=== PATIENT | female | born 1960 | race Caucasian/White ===

== ENCOUNTER 2017-06-22 08:30 | Emergency (ER) | payer BC ==
[~2017-06-22] VITALS: Ht 167.6 cm; Wt 74.8 kg
[~2017-06-22 08:30] MED LIST: CIPRO500 MG PO; FLAGYL250 MG PO; LEVAQUIN500 MG PO; TRAMADOL-ACETAMI1 EA PO; [UNRECOGNIZED DRUG - OTHER]
[2017-06-22] MEDS ORDERED: DEXAMETHASONE SOD PHOS 10 MG/1 ML VIAL INJ ONE (10:15)
[2017-06-22] MEDS ORDERED: DIAZEPAM 5 MG TAB PO PRN (10:15)
[2017-06-22] MEDS ORDERED: HYDROCODONE/APAP 10MG-325MG TAB PO ONE (10:15)
[2017-06-22] MEDS ORDERED: KETOROLAC TROMETHAMINE 60 MG/2 ML VIAL IM ONE (10:15)
== END 2017-06-22 11:17 | disposition home or self-care (01) ==
LOC: ER 08:30
DX: M54.5 Low back pain (principal); S39.012A Strain of muscle, fascia and tendon of lower back, initial encounter; M54.16 Radiculopathy, lumbar region
CPT/HCPCS: 99283; J1100; J1885

== ENCOUNTER → 2018-02-17 | Outpatient (CLI) | payer BC | LOC: RAD 13:47 | PROVIDERS: ATTEND Family Medicine | DX: M79.605 Pain in left leg (principal); Z91.89 Other specified personal risk factors, not elsewhere classified | CPT/HCPCS: 93971 ==

== ENCOUNTER → 2018-02-18 | Outpatient (CLI) | payer BC ==
--- NOTE | 2018-02-18 08:55 | Diagnostic Imaging Report ---
PROCEDURE: CT scan of the chest WITH intravenous contrast, using PE protocol. TECHNIQUE: The chest was scanned utilizing a multidetector helical scanner from the lung apex through the level of the adrenal glands after the IV administration of 73 cc of Isovue 370. Coronal and sagittal multiplanar reformations were obtained. Dose reduction strategies were utilized. DLP: 549.05 mGy-cm COMPARISON: CT scan of the abdomen and pelvis dated 01/06/2016. INDICATIONS: SHORTNESS OF BREATH FINDINGS: Lines/tubes: None. Lungs and Airways: The lungs and airways are normal with no focal abnormality demonstrated. No evidence of pulmonary emboli. Pleura: The pleural spaces are clear. Heart and mediastinum: The thyroid gland is normal. No significant mediastinal, hilar or axillary lymphadenopathy is seen. The heart and pericardium are within normal limits. Soft tissues: Normal. Abdomen: Moderate sized hiatal hernia. Large fat containing left adrenal mass with some internal soft tissue consistent with a myelolipoma which was previously described on a prior abdominal CT dated 01/06/2016 measuring 7.6 cm. It now measures 7.97 cm. Hepatic steatosis. Bones: The visualized bony thorax is within normal limits. IMPRESSION: 1. No evidence of pulmonary emboli. 2. Moderate sized hiatal hernia. 3. Left adrenal fat-containing mass consistent with a myelolipoma. Gerber Rivera D.O. Dictated by: Gerber Rivera D.O. on 02/18/2018 at 8:54 Electronically approved by: Gerber Rivera D.O. on 02/18/2018 at 9:02
== END ==
LOC: CT 07:40
PROVIDERS: ATTEND Family Medicine
DX: R07.9 Chest pain, unspecified (principal); R06.02 Shortness of breath; M79.605 Pain in left leg; Z91.89 Other specified personal risk factors, not elsewhere classified
CPT/HCPCS: 71260

== ENCOUNTER → 2018-02-23 | Outpatient (CLI) | payer BC ==
--- NOTE | 2018-02-23 11:36 | Diagnostic Imaging Report ---
TECHNIQUE: Magnetic resonance imaging of the LEFT KNEE was performed WITHOUT injected contrast. HISTORY: Left knee pain COMPARISON: None available. FINDINGS: LIGAMENTS AND TENDONS: ACL: Intact PCL: Intact Collateral ligaments: Intact Iliotibial band: Unremarkable Popliteal tendon: Intact Extensor mechanism: Intact JOINT: Menisci: Medial: Horizontal tear of the posterior horn with partial tearing at the root attachment results and extrusion. Lateral: Intact Articular Cartilage: Medial Compartment: Partial-thickness cartilage loss, high-grade Lateral Compartment: Partial-thickness cartilage loss, low-grade Patellofemoral Compartment: Partial-thickness cartilage loss, intermediate grade Joint Fluid: Moderate joint effusion BONE: No focal or infiltrative bone marrow replacing abnormality. No acute fracture. SOFT TISSUES: Otherwise, unremarkable. IMPRESSION: Medial meniscus horizontal tear posterior horn with partial tearing at the root attachment results in meniscal extrusion. Medial compartment high-grade cartilage loss. Signed by: Dr. Morales Taylor M.D. on 02/23/2018 11:33 AM
== END ==
LOC: MRI 10:14
PROVIDERS: ATTEND Family Medicine
DX: M25.562 Pain in left knee (principal)

== ENCOUNTER → 2018-08-23 | Day surgery (SDC) | payer BC ==
[~2018-08-23] MED LIST changes: +FENTANYL CITRATE/PF 100MCG/2 ML INJ ONE; +HYOSCYAMINE SULFATE 0.5 MG/ML INJ ONE; +MELOXICAM7.5 MG PO; +MIDAZOLAM HCL 2 MG/2 ML VIAL ONE; +PROPOFOL IV EMULSION 10 MG/ML 50 ML VIAL ONE; +ZYRTEC10 M3 PO
--- OUTSIDE RECORDS SUMMARY | 2018-08-23 09:25 | XMS REPORT ---
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 Allergies, Adverse Reactions, Alerts This patient has no known allergies or adverse reactions. Medications This patient has no known medications. Results Test Description Test Time Test Comments Text Results Atomic Results Result Comments MRI KNEE LEFT WO 2018-02-23 11:24:00 [place] [id number] [place] [id number] Patient Name: DAE PEREZ MR #: [id number] : 1960 Age/Sex: 57/F Req #: [id number] [facility] Physician: Ordered by: JESSICA AKERS DO Report #: [id number] Location: MRI Room/Bed: Procedure: [id number] MRI/MRI KNEE LEFT WO Exam Date: Exam Time: REPORT STATUS: Signed TECHNIQUE: Magnetic resonance imaging of the LEFT KNEE was performed WITHOUT injected contrast. HISTORY: Left knee pain COMPARISON: None available. FINDINGS: LIGAMENTS AND TENDONS: ACL: Intact PCL: Intact Collateral ligaments: Intact Iliotibial band: Unremarkable Popliteal tendon: Intact Extensor mechanism: Intact JOINT: Menisci: Medial: Horizontal tear of the posterior horn with partial tearing at the root attachment results and extrusion. Lateral: Intact Articular Cartilage: Medial Compartment: Partial-thickness cartilage loss, high-grade Lateral Compartment: Partial-thickness cartilage loss, low-grade Patellofemoral Compartment: Partial-thickness cartilage loss, intermediate grade Joint Fluid: Moderate joint effusion BONE: No focal or infiltrative bone marrow replacing abnormality. No acute fracture. SOFT TISSUES: Otherwise, unremarkable. IMPRESSION: Medial meniscus horizontal tear posterior horn with partial tearing at the root attachment results in meniscal extrusion. Medial compartment high-grade cartilage loss. Signed by: Dr. Avni Webb M.D. on 02/23/2018 11:33 AM Dictated By: AVNI WEBB MD 113 Transcribed By: KAREN on 02/23/18 1133 COPY TO: JESSICA AKERS DO CT CHEST W 2018-02-18 08:54:00 [place] [id number] Patient Name: DAE PEREZ MR #: [id number] : 1960 Age/Sex: 57/F Req #: [id number] Adm Physician: Ordered by: JESSICA AKERS DO Report #: [id number] Location: CT Room/Bed: Procedure: [id number] CT/CT CHEST W Exam Date: 02/18/18 Exam Time: 814 REPORT STATUS: Signed PROCEDURE: CT scan of the chest WITH intravenous contrast, using PE protocol. TECHNIQUE: The chest was scanned utilizing a multidetector helical scanner from the lung apex through the level of the adrenal glands after the IV administration of 73 cc of Isovue 370. Coronal and sagittal multiplanar reformations were obtained. Dose reduction strategies were utilized. DLP: 549.05 mGy-cm COMPARISON: CT scan of the abdomen and pelvis dated 01/06/2016. INDICATIONS: SHORTNESS OF BREATH FINDINGS: Lines/tubes: None. Lungs and Airways: The lungs and airways are normal with no focal abnormality demonstrated. No evidence of pulmonary emboli. Pleura: The pleural spaces are clear. Heart and mediastinum: The thyroid gland is normal. No significant mediastinal, hilar or axillary l ymphadenopathy is seen. The heart and pericardium are within normal limits. Soft tissues: Normal. Abdomen: Moderate sized hiatal hernia. Large fat containing left adrenal mass with some internal soft tissue consistent with a myelolipoma which was previously described on a prior abdominal CT dated 01/06/2016 measuring 7.6 cm. It now measures 7.97 cm. Hepatic steatosis. Bones: The visualized bony thorax is within normal limits. IMPRESSION: 1. No evidence of pulmonary emboli. 2. Moderate sized hiatal hernia. 3. Left adrenal fat-containing mass consistent with a myelolipoma. Kim Rivera D.O. Dictated by: Kim Rivera D.O. on 02/18/2018 at 8:54 Electronically approved by: Kim Rivera D.O. on 02/18/2018 at 9:02 Dictated By: KIM RIVERA DO 1 Transcribed By: CHERELLE on 02/18/18901 COPY TO: JESSICA AKERS DO
[2018-08-23 13:12] VITALS: BP 120/85
--- NOTE | 2018-08-23 20:03 | Operative Report ---
DATE OF PROCEDURE: 08/23/2018 SURGEON: Damian Bernal MD PROCEDURES: EGD with esophageal dilatation and biopsies and colonoscopy with biopsies. INDICATION FOR EGD: Dysphagia, heartburn. INDICATIONS FOR COLONOSCOPY: Lower abdominal pain. MEDICATIONS: The patient was done under MAC, please see anesthesiologist's note. PROCEDURE IN DETAIL: With the patient in left lateral decubitus position, the flexible fiberoptic Olympus gastroscope was introduced into the esophagus under direct visualization without any difficulty. There was some patchy erythema noted in distal esophagus. Esophagus was then dilated to size 52-Sammarinese Chang. The scope was then advanced with ease into the stomach traversing a moderate-sized hiatal hernia. Mucosa overlying the antrum and the body revealed some patchy erythema, gefc-uo-stbucycj edema and biopsies were obtained and sent to stain for H pylori. A minute polyp from the body of the stomach was hyperplastic appearing was removed. It was partially excised with the cold biopsy forceps. The pylorus was of normal contour and shape, was intubated with ease and the scope was advanced all the way to the second portion of the duodenum. The scope was then withdrawn slowly. Mucosa overlying the proximal second portion and the duodenal bulb appeared to be within normal limits. Biopsies were obtained to rule out sprue. The scope was then withdrawn back into the stomach and retroflexed. Mucosa overlying the fundus appeared to be within normal limits. The previously described hiatal hernia was also noted in the retroflexed position. The scope was then straightened out, it was subsequently withdrawn. The patient tolerated the procedure well. IMPRESSION: 1. Mild distal esophagitis. 2. Esophageal stricture, dilated to size 52-Sammarinese Chang. 3. Moderate-sized hiatal hernia. 4. Gastritis, biopsied. Biopsies sent to stain for Helicobacter pylori. 5. Gastric polyp, hyperplastic appearing, partially excised with the cold biopsy forceps. 6. Rule out sprue. PLAN: Follow up histology. Initiate Protonix 40 mg 1 p.o. q.a.m. a.c. The patient was then turned around after adequate lubrication of the anal canal, flexible fiberoptic Olympus colonoscope was inserted into the rectum with ease and advanced all the way to the cecum. It was then withdrawn slowly. Mucosa overlying the cecum, ascending colon, transverse colon, and descending colon grossly appeared to be within normal limits. Of note, there was diverticular disease throughout the colon. The mucosa overlying the sigmoid and the rectum revealed some patchy mild inflammatory changes and random biopsies were obtained. Anastomosis was noted at approximately 10 cm from the anal verge. The scope was then retroflexed into the distal rectum and small internal hemorrhoids were noted, none of which was actively bleeding. The scope was then straightened out. It was subsequently withdrawn. The patient tolerated the procedure well. IMPRESSION: 1. Duong-diverticulosis. 2. Proctosigmoiditis, mild. 3. Anastomosis intact at 10 cm from the anal verge. 4. Internal hemorrhoids, none actively bleeding. PLAN: Follow up histology. Initiate VSL #3, one p.o. daily. Bentyl 10 mg one p.o. t.i.d. The patient might benefit from a followup colonoscopy in 5-10 years. Damian Bernal MD [place]/VIOLET /[id number] cc: Alfonso Coronel DO
== END | disposition home or self-care (01) ==
LOC: OR 09:24
PROVIDERS: ATTEND Internal Medicine Gastroenterology
DX: K22.2 Esophageal obstruction (principal); K31.7 Polyp of stomach and duodenum; K29.70 Gastritis, unspecified, without bleeding; K20.9 Esophagitis, unspecified; K44.9 Diaphragmatic hernia without obstruction or gangrene; K57.30 Diverticulosis of large intestine without perforation or abscess without bleeding; K63.89 Other specified diseases of intestine; K64.8 Other hemorrhoids; Z98.0 Intestinal bypass and anastomosis status; Z88.8 Allergy status to other drugs, medicaments and biological substances; Z91.041 Radiographic dye allergy status; Z91.040 Latex allergy status; Z01.810 Encounter for preprocedural cardiovascular examination; Z68.32 Body mass index [BMI] 32.0-32.9, adult; Z80.0 Family history of malignant neoplasm of digestive organs
CPT/HCPCS: 43239; 43450; 45380; 93005; J1980; J2250; J2704; 45378

== ENCOUNTER 2019-05-09 13:42 | Inpatient (IN) | payer BC ==
[~2019-05-09] VITALS: Ht 165.1 cm; Wt 95.3 kg
[~2019-05-09 13:42] MED LIST changes: -FENTANYL CITRATE/PF 100MCG/2 ML INJ ONE; -HYOSCYAMINE SULFATE 0.5 MG/ML INJ ONE; -MIDAZOLAM HCL 2 MG/2 ML VIAL ONE; -PROPOFOL IV EMULSION 10 MG/ML 50 ML VIAL ONE
[2019-05-09] MEDS ORDERED: SODIUM CHLORIDE 0.9% 500ML 500 ML IV ONE (14:00)
[2019-05-09 14:15] LABS: BASOPHILS # (AUTO) 0.1 (0.0-0.1); BASOPHILS % 0.8 % (0.0-1.0); EOSINOPHILS # (AUTO) 0.2 (0.0-0.4); EOSINOPHILS % 1.7 % (0.0-6.0); HEMATOCRIT 28.2 % (34.2-44.1); HEMOGLOBIN 8.9 g/dL (12.0-16.0); LYMPHOCYTES # (AUTO) 2.3 (1.0-3.2); MEAN CORPUSCULAR HEMOGLOBIN 28.3 pg (28-32); MEAN CORPUSCULAR HGB CONC 31.6 g/dL (31-35); MEAN CORPUSCULAR VOLUME 89.5 fL (81-99); MONOCYTES # (AUTO) 0.7 (0.2-0.8); MONOCYTES % 7.4 % (4.4-11.3); NEUTROPHILS # (AUTO) 5.8 (2.1-6.9); NEUTROPHILS % 62.3 % (38.7-80.0); PLATELET COUNT 284 x10e3/uL (140-360); RED BLOOD COUNT 3.15 x10e6/uL (3.6-5.1); RED CELL DISTRIBUTION WIDTH 13.7 % (11.7-14.4)
[2019-05-09 14:28] LABS: INR 0.91; PARTIAL THROMBOPLASTIN TIME 26.3 seconds (23.8-35.5); PROTHROMBIN TIME 12.7 seconds (11.9-14.5)
[2019-05-09 14:38] LABS: ALANINE AMINOTRANSFERASE 85 IU/L (0-55); ALBUMIN 3.2 g/dL (3.5-5.0); ALKALINE PHOSPHATASE 96 IU/L (40-150); ANION GAP 13.9 mmol/L (8-16); BLOOD UREA NITROGEN 13 mg/dL (7-26); BUN/CREATININE RATIO 18 (6-25); CALCIUM 9.3 mg/dL (8.4-10.2); CARBON DIOXIDE 26 mmol/L (22-29); CHLORIDE 102 mmol/L (98-107); CREATINE KINASE 122 IU/L (29-168); CREATININE, SERUM 0.74 mg/dL (0.57-1.11); EST GLOMERULAR FILTRATION RATE > 60 ML/MIN (60-); GLUCOSE 92 mg/dL (74-118); POTASSIUM 3.9 mmol/L (3.5-5.1); SODIUM 138 mmol/L (136-145)
[2019-05-09] MEDS ORDERED: FAMOTIDINE 20 MG/2 ML VIAL IV ONE (14:58)
[2019-05-09] MEDS ORDERED: DIPHENHYDRAMINE HCL INJ 50 MG/ML VIAL IV ONE (15:00)
[2019-05-09] MEDS ORDERED: METHYLPREDNISOLONE SOD SUCC 125 MG/2ML VIAL IV ONE (15:00)
--- NOTE | 2019-05-09 15:31 | Diagnostic Imaging Report ---
Chest, portable AP view History: Shortness of breath Comparison: No comparisons available for review IMPRESSION: The heart is within normal limits of size. Bibasilar atelectasis is present. No focal consolidation, sizable pleural effusion, or pneumothorax. Signed by: Michel Stafford MD on 05/09/2019 3:28 PM
[2019-05-09] MEDS ORDERED: ASPIR 8181 MG PO (15:49)
[2019-05-09] MEDS ORDERED: TIZANIDINE HCL4 MG PO (15:49)
[2019-05-09] MEDS ORDERED: ULTRAM50 MG PO (15:49)
[2019-05-09] MEDS ORDERED: KETOROLAC TROME10 MG PO (15:49)
[2019-05-09] MEDS ORDERED: FLECTOR1 EACH (15:49)
[2019-05-09] MEDS ORDERED: NORCO 10-325 T1 EACH PO (15:49)
--- NOTE | 2019-05-09 15:53 | NUR ---
AREA SECRETARY HERE FOR VENOUS DOPPLERS
--- NOTE | 2019-05-09 16:53 | Diagnostic Imaging Report ---
CT of the chest, with contrast. PE protocol History: Shortness of breath Comparison: No chest CT comparisons available for review. Comparison is made to chest radiograph dated 05/09/2019. Report from CT of the abdomen and pelvis dated 01/06/2016 Technique: Multidetector CT scanning of the chest was performed from the level of the thoracic inlet to the upper abdomen after IV contrast administration. Thin collimation scanning through the pulmonary arteries was performed during the early phase. DOSE REDUCTION: The examination was performed according to departmental dose-optimization program which includes automated exposure control, adjustment of the mA and/or kV according to patient size and/or use of iterative reconstruction technique. Discussion: There is no axillary, mediastinal, or hilar lymphadenopathy. The heart is within normal limits of size. There is no pericardial effusion the thoracic aorta is of normal course and caliber. The main pulmonary artery is normal in caliber. The pulmonary artery branches are well-opacified with contrast. There is no evidence of filling defect to suggest acute pulmonary embolism. The trachea and central airways are clear. A moderate right pleural effusion and small left pleural effusion are present. The lungs demonstrate diffuse nonspecific groundglass opacities, right greater than left which may be secondary to edema or atypical infection. Multiple pulmonary nodules are identified: 6 mm, right upper lobe, series 3 image 35 4 mm, right upper lobe, series 3 image 36 4 mm, right upper lobe, series 3 image 39 There is no pneumothorax. A moderate hiatal hernia is present. No acute osseous abnormalities. Limited evaluation of the upper abdomen demonstrates a partially imaged fat-containing left adrenal mass which is previously been characterized as a myolipoma. The right adrenal gland is unremarkable. No focal hepatic lesions identified in the visualized portions of the liver. No acute osseous abnormalities. IMPRESSION: 1. No evidence of pulmonary embolism. 2. Moderate right and small left pleural effusion. 3. Nonspecific ground glass opacities throughout both lungs, right greater than left. Findings may be seen in edema or atypical infection. 4. Pulmonary nodules measuring up to [address] at 3-6 months, then at 18-24 months. 5. Partially imaged fat-containing left adrenal mass. Previously characterized as an adrenal myolipoma. Signed by: Michel Stafford MD on 05/09/2019 4:49 PM
[2019-05-09] MEDS ORDERED: PROPOFOL IV EMULSION 10MG/ML 100 ML ONE (17:15)
[2019-05-09] MEDS ORDERED: FAMOTIDINE 20 MG/2 ML VIAL IV SCH (18:15)
[2019-05-09] MEDS ORDERED: MORPHINE SULFATE 2 MG/ML SYR 1ML IV PRN (18:15)
[2019-05-09] MEDS: CEFTRIAXONE SOD 1 GM/NS 50 ML 50 ML IV SCH (18:40)
[2019-05-09] MEDS: AZITHROMYCIN 500MG/NS 250 ML 250 ML IV SCH (19:21)
[2019-05-09] MEDS ORDERED: HYDROCODON-ACE1 EAC9 PO (19:38)
[2019-05-09] MEDS ORDERED: FLUTICASONE PRO16 GM (19:38)
[2019-05-09] MEDS ORDERED: LO-DOSE ASPIRIN81 MG PO (19:38)
[2019-05-09] MEDS ORDERED: DICLOFENAC SODI75 MG PO (19:38)
[2019-05-09] MEDS ORDERED: ACETAMINOPHN-B1 EACH PO (19:40)
[2019-05-09] MEDS ORDERED: IOPAMIDOL 370 MG/ML 200 ML INFUS..BTL INJ ONE (19:55)
[2019-05-09] MEDS ORDERED: SODIUM CHLORIDE 0.9% 50ML 50 ML ONE (19:55)
[2019-05-09] MEDS: MORPHINE SULFATE INJ 4 MG/ML INJ 1ML IV PRN (22:30)
[2019-05-09] MEDS: ONDANSETRON HCL INJ 2MG/ML 2ML 2 MG/ML VIAL IV PRN (22:30)
[2019-05-10 01:56] LABS: CREATINE KINASE 108 IU/L (29-168)
[2019-05-10] MEDS: ONDANSETRON HCL INJ 2MG/ML 2ML 2 MG/ML VIAL IV PRN ×3 (03:11→16:20)
[2019-05-10] MEDS: MORPHINE SULFATE INJ 4 MG/ML INJ 1ML IV PRN (03:11)
[2019-05-10 05:50] LABS: BASOPHILS % 0.2 % (0.0-1.0); HEMATOCRIT 29.2 % (34.2-44.1); HEMOGLOBIN 9.1 g/dL (12.0-16.0); LYMPHOCYTES % 10.3 % (18.0-39.1); MEAN CORPUSCULAR HEMOGLOBIN 28.7 pg (28-32); MEAN CORPUSCULAR HGB CONC 31.2 g/dL (31-35); MEAN CORPUSCULAR VOLUME 92.1 fL (81-99); MONOCYTES # (AUTO) 0.3 (0.2-0.8); MONOCYTES % 3.4 % (4.4-11.3); NEUTROPHILS # (AUTO) 7.9 (2.1-6.9); NEUTROPHILS % 82.3 % (38.7-80.0); PLATELET COUNT 283 x10e3/uL (140-360); RED BLOOD COUNT 3.17 x10e6/uL (3.6-5.1); RED CELL DISTRIBUTION WIDTH 13.5 % (11.7-14.4)
[2019-05-10 06:12] LABS: ALANINE AMINOTRANSFERASE 65 IU/L (0-55); ALKALINE PHOSPHATASE 87 IU/L (40-150); ANION GAP 15.2 mmol/L (8-16); BLOOD UREA NITROGEN 11 mg/dL (7-26); BUN/CREATININE RATIO 15 (6-25); CALCIUM 9.2 mg/dL (8.4-10.2); CARBON DIOXIDE 26 mmol/L (22-29); CHLORIDE 109 mmol/L (98-107); CHOL/HDL RATIO 2.6 (3.0-3.6); CHOLESTEROL 95 MD/DL (0-199); CREATINE KINASE 98 IU/L (29-168); CREATININE, SERUM 0.73 mg/dL (0.57-1.11); EST GLOMERULAR FILTRATION RATE > 60 ML/MIN (60-); GLUCOSE 146 mg/dL (74-118); HDL CHOLESTEROL 37 MG/DL (40-60); LDL CHOLESTEROL 45 MG/DL (60-130); POTASSIUM 5.2 mmol/L (3.5-5.1); SODIUM 145 mmol/L (136-145); TRIGLYCERIDES 63 MG/DL (0-149)
--- NOTE | 2019-05-10 10:50 | NUR ---
Report received from FANTASMA Nguyen. Pt sitting up comfortably. RR even and unlabored. Pt remains on NIBP, pulse ox, cardiac monitoring and oxygen via NC @ 2L. Call light in reach. Bed locked in lowest position. Bed rails up x2. Spouse at bedside. Will continue to monitor.
[2019-05-10] MEDS: FAMOTIDINE 20 MG/2 ML VIAL IV SCH ×2 (11:45→22:00)
[2019-05-10] MEDS: HYDROMORPHONE 2MG/ML 2 MG/ML ML IV PRN ×3 (11:52→22:00)
[2019-05-10] MEDS: ACETAMIN/BUTALBITAL/CAFFEINE TAB PO PRN (12:22)
--- NOTE | 2019-05-10 12:49 | NUR ---
WOUND CARE CONSULT 58 YO FEMALE IN ER HOLDING FOR ONSET OF DYSPNEA,CHF MIRIAM 14 ON MODERATE PUP ON VISCO MATTRESS AT THIS TIME LABS: WBC- 9.35,HG- 9.1, GLUCOSE - 146 BLOOD CULTURE PENDING VENOUS DOPPLER DONE TO R/O VENOUS THROMBUS SKIN ASSESSMENT COMPLETE PATIENT PRESENTS WITH RECENT POST SURGICAL LEFT KNEE (TKR) 15 CM STAPLE LINE NOTED AND WELL APPROXIMATED WITH MINIMAL SEROSANGUINEOUS DRAINAGE NERI SKIN DRY AND INTACT . PER PATIENT REPORT SHE WAS TOLD BY ORTHOPEDIC SURGEON TO REMOVE SILVER ALGINATE DRESSING AND CLEAN WITH HIBICLENS AND LEAVE OPEN TO AIR RECOMMENDATIONS : NURSING TO CONTINUE TO MAINTAIN MODERATE PUP STATUS AND INTERVENTIONS NURSING TO CONTINUE TO MONITOR AND PROTECT LEFT KNEE STAPLE LINE IF ANY REDNESS, PAIN OR DECREASE MOBILITY OCCURS CONTACT MD AND RECONSULT WOUND CARE TO ASSESS FOR POSSIBILITY OF INFECTION
[2019-05-10] MEDS ORDERED: LORATADINE 10 MG TAB PO PRN (13:15)
[2019-05-10] MEDS ORDERED: ASPIRIN 81 MG ENTERIC COATED PO SCH (14:00)
[2019-05-10 14:22] VITALS: BP 139/67
--- NOTE | 2019-05-10 14:22 | NUR ---
Received patient from E.. Lying in bed with eyes open. Respiration even and unlabored without SOB. O2 1 L NC in placed. Left knee post surgical site with elo open to air, wound bed clean and surrounding skin no bleeding, swelling and no s/s of infection noted. Spouse at bedside. Call light in reach. Denies pain at this time.
[2019-05-10 16:00] VITALS: BP 139/67
[2019-05-10] MEDS: CEFTRIAXONE SOD 1 GM/NS 50 ML 50 ML IV SCH (16:07)
[2019-05-10] MEDS: FUROSEMIDE INJ 10 MG/ML 4 ML VIAL IV SCH (16:08)
[2019-05-10] MEDS ORDERED: SODIUM CHLORIDE 0.9% 250ML 250 ML ONE (16:18)
[2019-05-10] MEDS: AZITHROMYCIN 500MG/NS 250 ML 250 ML IV SCH (17:26)
--- NOTE | 2019-05-10 19:00 | NUR ---
Report given to night shift supervisor. Respiration even and unlabored without SOB. Call light in reach.
[2019-05-10 19:12] VITALS: BP 139/67
[2019-05-10 20:00] VITALS: BP 102/58
--- NOTE | 2019-05-10 22:50 | Consultation ---
DATE OF CONSULTATION: 05/10/2019 Cardiology Consultation REQUESTING PHYSICIAN: Dr. Bernal. REASON FOR CONSULTATION: Congestive heart failure. HISTORY OF PRESENT ILLNESS: This is a 58-year-old woman with history of migraine and GERD, who presents with complaints of shortness of breath. The patient reports she had been doing well and until Thursday when she had a left knee replacement, she subsequently developed shortness of breath on Thursday night, associated palpitations. This progressively worsened such that she was dyspneic with taking a shower. She called her orthopedic surgeon who instructed her to present to the closest ER for evaluation. She denied any chest pain, orthopnea, or PND. Denies any recent travel other than a trip to [place] [place] in March. Evaluation in the ER included CTA of the chest which was without evidence of pulmonary embolism, although moderate right and small left pleural effusions were noted. There were nonspecific ground-glass opacities throughout both lungs, right greater than left, as well as pulmonary nodules. Cardiology is therefore consulted for evaluation of CHF. REVIEW OF SYSTEMS: Negative except as per HPI. PAST MEDICAL HISTORY: 1. Migraines. 2. GERD. PAST SURGICAL HISTORY: 1. Partial colon resection. 2. section x2. 3. Left knee replacement. ALLERGIES: PLEASE SEE EMR. MEDICATIONS: Please see medication list. SOCIAL HISTORY: Denies tobacco, alcohol, or illicit drugs. FAMILY HISTORY: Noncontributory to current illness. PHYSICAL EXAMINATION: VITAL SIGNS: Temperature 98.7 degrees, pulse 90, respiratory rate 16, blood pressure 135/65, and oxygen saturation 100% on 2 L nasal cannula. GENERAL: Awake, alert, well developed, and well nourished. HEENT: Normocephalic and atraumatic. Pupils are equal. No scleral icterus. NECK: Supple. No thyromegaly or cervical lymphadenopathy. No carotid bruits. LUNGS: Clear to auscultation bilaterally. No wheezes or crackles. CARDIOVASCULAR: Normal rate, regular rhythm. No murmur. Normal S1 and S2. ABDOMEN: Soft and nontender. EXTREMITIES: Trace edema. NEUROLOGIC: Nonfocal exam. LABORATORY DATA: EKG normal sinus rhythm, normal ECG. WBC 9.53, hemoglobin 9.1, hematocrit 29.2, and platelets 283. Sodium 145, potassium 5.2, chloride 109, CO2 of 26, BUN 11, creatinine 0.73. BNP 289. Troponin is less than 0.001. Triglycerides 63, cholesterol 95, LDL 45, and HDL 37. IMPRESSION: 1. Cqavh-gg-rzmwucx diastolic heart failure. 2. Elevated blood pressure. 3. Pleural effusions. RECOMMENDATIONS: Start the patient on IV diuretics. Echocardiogram was reviewed. LV ejection fraction was normal, although she had pseudonormal LV fillings consistent with diastolic dysfunction. Monitor the patient closely on telemetry, with monitor and replete electrolytes. Monitor blood pressure closely. She may need initiation of antihypertensive therapy if blood pressure remains elevated. Recommend the patient to followup in the office once she has recovered from her surgery for nuclear stress test given findings of diastolic dysfunction on echocardiogram. Thank you for this consult. We will continue to follow. Inge Goel MD ABS/MODL /[id number]
[2019-05-10 23:59] VITALS: BP 102/58
[2019-05-11] VITALS (8 sets, daily range): BP systolic 127–160; BP diastolic 64–77
[2019-05-11] MEDS: FUROSEMIDE INJ 10 MG/ML 4 ML VIAL IV SCH ×2 (08:50→18:31)
[2019-05-11] MEDS: ASPIRIN 81 MG ENTERIC COATED PO SCH (08:50)
[2019-05-11] MEDS: FAMOTIDINE 20 MG/2 ML VIAL IV SCH (08:50)
[2019-05-11] MEDS ORDERED: ASPIRIN 81 MG PO SCH (09:00)
[2019-05-11] MEDS: ACETAMIN/BUTALBITAL/CAFFEINE TAB PO PRN (10:47)
[2019-05-11] MEDS: ONDANSETRON HCL INJ 2MG/ML 2ML 2 MG/ML VIAL IV PRN ×2 (10:47→15:53)
[2019-05-11] MEDS: HYDROMORPHONE 2MG/ML 2 MG/ML ML IV PRN ×3 (10:47→21:30)
[2019-05-11] MEDS: FAMOTIDINE 20 MG TAB PO SCH (15:02)
--- NOTE | 2019-05-11 16:24 | NUR ---
WENT TO ROOM PER REQUEST TO GET CHOICE FOR MEDICAL RESORT PER ORDER ENTERED VIA NURSE. SENT CLINICALS, WAS INFORMED FROM ERIE THAT THIS [facility] IS NOT IN NETWORK.
--- NOTE | 2019-05-11 17:36 | NUR ---
SPOKE WITH PT AND LET KNOW MEDICAL RESORT NOT IN NETWORK, GAVE LIST OF ONES IN AND PT REFUSED, SHE STATES SHE WILL STAY HERE AND THEN RESUME HER OUTPATIENT TREATMENT WHEN LEAVE HERE.
[2019-05-11] MEDS: AZITHROMYCIN 250 MG TAB PO SCH (18:31)
[2019-05-11] MEDS: CEFTRIAXONE SOD 1 GM/NS 50 ML 50 ML IV SCH (18:31)
--- NOTE | 2019-05-11 19:05 | NUR ---
Complete nursing report with morning nurse. Pt alert and orient to name, lying in bed, HOB 60 degrees. Denies pain at this time. Bed low and locked. Call light within reach. Will continue to monitor.
--- NOTE | 2019-05-11 19:45 | NUR ---
Dr. Sharp rounded, no new orders.
--- NOTE | 2019-05-11 19:53 | Progress Note ---
DATE: 05/11/2019 Cardiology Progress Note SUBJECTIVE: The patient denies chest pain. She reports her shortness of breath has improved. OBJECTIVE: VITAL SIGNS: Temperature 98.2 degrees, pulse 78, respiratory rate 20, blood pressure 128/69, oxygen saturation 92% on room air. GENERAL: Awake, alert, in no acute distress. LUNGS: Clear to auscultation bilaterally. No wheezes or crackles. CARDIOVASCULAR: Normal rate. Regular rhythm. No murmur. Normal S1, S2. ABDOMEN: Soft, nontender. EXTREMITIES: No edema. CARDIAC MEDICATIONS: Lasix 40 mg IV b.i.d., aspirin 81 mg p.o. daily. LABORATORY DATA: None today. TELEMETRY: Sinus tachycardia. IMPRESSION: 1. Oszet-pj-vjdfqvx diastolic heart failure. 2. Elevated blood pressure. 3. Pleural effusion. RECOMMENDATIONS: Continue IV diuretics. Monitor creatinine. Blood pressure has improved. We will monitor closely. Continue current cardiac medications. She will need to follow up in the office when she has recovered from her surgery for a nuclear stress test given findings of diastolic dysfunction on echo. Thank you for this consult. We will continue to follow. Inge Goel MD ABS/MODL /[id number]
[2019-05-11 20:18] LABS: ANION GAP 18.4 mmol/L (8-16); BLOOD UREA NITROGEN 16 mg/dL (7-26); BUN/CREATININE RATIO 18 (6-25); CALCIUM 9.3 mg/dL (8.4-10.2); CARBON DIOXIDE 26 mmol/L (22-29); CHLORIDE 99 mmol/L (98-107); CREATININE, SERUM 0.91 mg/dL (0.57-1.11); EST GLOMERULAR FILTRATION RATE > 60 ML/MIN (60-); GLUCOSE 197 mg/dL (74-118); POTASSIUM 3.4 mmol/L (3.5-5.1); SODIUM 140 mmol/L (136-145)
[2019-05-12] VITALS (9 sets, daily range): BP systolic 120–145; BP diastolic 61–78
[2019-05-12] MEDS: FAMOTIDINE 20 MG TAB PO SCH ×2 (00:06→13:13)
--- NOTE | 2019-05-12 00:07 | NUR ---
Removed IV 20g left hand, Pt tolerated well. Admin prn Dilaudid pain 5/10 left leg pain.
[2019-05-12] MEDS: HYDROMORPHONE 2MG/ML 2 MG/ML ML IV PRN ×4 (03:25→20:30)
--- NOTE | 2019-05-12 06:50 | NUR ---
report given to morning nurse. Pt alert and orient. No acute distress noted.
[2019-05-12] MEDS ORDERED: POTASSIUM CHLORIDE 20 MEQ TAB CR PO ONE (07:00)
[2019-05-12 08:28] LABS: BASOPHILS # (AUTO) 0.1 (0.0-0.1); BASOPHILS % 1.1 % (0.0-1.0); EOSINOPHILS # (AUTO) 0.3 (0.0-0.4); EOSINOPHILS % 2.7 % (0.0-6.0); HEMATOCRIT 34.5 % (34.2-44.1); HEMOGLOBIN 10.5 g/dL (12.0-16.0); LYMPHOCYTES # (AUTO) 3.1 (1.0-3.2); LYMPHOCYTES % 29.2 % (18.0-39.1); MEAN CORPUSCULAR HEMOGLOBIN 27.7 pg (28-32); MEAN CORPUSCULAR HGB CONC 30.4 g/dL (31-35); MONOCYTES # (AUTO) 0.9 (0.2-0.8); MONOCYTES % 8.3 % (4.4-11.3); NEUTROPHILS # (AUTO) 5.9 (2.1-6.9); PLATELET COUNT 340 x10e3/uL (140-360); RED BLOOD COUNT 3.79 x10e6/uL (3.6-5.1); RED CELL DISTRIBUTION WIDTH 14.5 % (11.7-14.4)
[2019-05-12 08:52] LABS: ALANINE AMINOTRANSFERASE 35 IU/L (0-55); ALBUMIN 3.4 g/dL (3.5-5.0); ALKALINE PHOSPHATASE 78 IU/L (40-150); ANION GAP 13.7 mmol/L (8-16); BLOOD UREA NITROGEN 15 mg/dL (7-26); BUN/CREATININE RATIO 20 (6-25); CALCIUM 9.4 mg/dL (8.4-10.2); CARBON DIOXIDE 30 mmol/L (22-29); CHLORIDE 98 mmol/L (98-107); CREATININE, SERUM 0.74 mg/dL (0.57-1.11); EST GLOMERULAR FILTRATION RATE > 60 ML/MIN (60-); GLUCOSE 101 mg/dL (74-118); LACTATE DEHYDROGENASE 335 IU/L (125-220); MAGNESIUM 2.2 MG/DL (1.3-2.1); POTASSIUM 3.7 mmol/L (3.5-5.1); SODIUM 138 mmol/L (136-145)
[2019-05-12] MEDS: ASPIRIN 81 MG ENTERIC COATED PO SCH (09:46)
[2019-05-12] MEDS: FUROSEMIDE INJ 10 MG/ML 4 ML VIAL IV SCH ×2 (09:46→17:36)
[2019-05-12] MEDS: ONDANSETRON HCL INJ 2MG/ML 2ML 2 MG/ML VIAL IV PRN ×3 (09:56→21:50)
--- NOTE | 2019-05-12 10:52 | Consultation ---
DATE OF CONSULTATION: 05/11/2019 Pulmonary Medicine Consult PRIMARY CARE DOCTOR: Alfonso Coronel DO REASON FOR REFERRAL: Abnormal chest radiography. HISTORY OF PRESENT ILLNESS: Ms. Sutherland is a pleasant 58-year-old female with abnormal chest radiography. The patient was admitted to [facility] on . No known inciting factors. The patient has surgery done with a left total knee replacement one week prior at an outside facility. Due to a pattern of nonresolution and mild worsening, the patient came to emergency room. Influenza assays were negative. White count unremarkable. Chest x-ray with right-sided atelectasis, mostly clear. CT chest performed showed no evidence of PE with angiography, moderate right and small left pleural effusion, nonspecific ground-glass opacities in both lungs, right greater than left, pulmonary nodules measuring up to 6 mm. Hiatal hernia of moderate size noted. I am consulted. No history of asthma. There is seasonal asthma and she takes a few Zyrtec per year. She was formally on allergy shots. Moderate daily GERD. No known sleep apnea, although she snores loudly on her back. Echocardiogram with 60% to 65% LVEF. May 09, 2019, ultrasound venous of legs with no DVT bilaterally. PAST MEDICAL HISTORY: Migraines, GERD, partial colonic resection, x2, left knee replacement in May 2019, seasonal allergies. MEDICATIONS: Medication list reviewed per the chart record. ALLERGIES: IBUPROFEN, IODINE, LATEX. SOCIAL HISTORY: No smoking. No drinking. No drugs. The patient works as third cook and . FAMILY HISTORY: Noncontributory. REVIEW OF SYSTEMS: GENERAL: No weight changes. OPHTHALMOLOGIC: No double vision. ENT: No mouth ulcers. ENDOCRINE: No known thyroid disease. PULMONARY: No hemoptysis. CARDIAC: No heart attacks. GI: No constipation. : No blood in urine. NEUROLOGIC: No seizures. DERMATOLOGIC: No rash. MUSCULOSKELETAL: Only minimal arthritis. PHYSICAL EXAMINATION: VITAL SIGNS: Afebrile, vital signs noted and reviewed per the chart record. GENERAL: In no acute distress. Alert and calm. HEENT: Normocephalic and atraumatic. NECK: Supple. Throat midline. LUNGS: Bilateral air entry, decreased breath sounds at bases, rare rhonchi. CARDIOVASCULAR: S1, S2. No murmurs, rubs, or gallops. ABDOMEN: Soft, nontender. EXTREMITIES: No clubbing. No cyanosis. There is no edema except minimal to the left knee. INTEGUMENT: No rash. No purpura. Vertical staple line at left anterior knee. LABORATORY DATA: white count, 29 hematocrit, 283 platelets. Differential unremarkable. potassium, 26 bicarbonate, 16 BUN, 0.91 creatinine. Total protein 6.01, albumin 3.0. IMPRESSION AND PLAN: 1. Clinical pneumonitis. Etiology unclear. Cannot rule out aspiration, negative pressure pulmonary edema postextubation, community-acquired pneumonia, other. 2. Diastolic heart failure, acute. Suggested as possible. 3. Hypertension. 4. Gastroesophageal reflux disease, moderate hiatal hernia. 5. Multiple pulmonary nodules up to 6 mm in size. 6. Seasonal allergies. 7. Reported loud snoring without definite sleep apnea. 8. History of migraines. PLAN: Agree with antibiotics. Trial of diuresis as well for the transudative components. The patient needs repeat radiography until resolution of infiltrates/effusions. We will consider ultrasound of the thorax if the effusions increase in size. GERD preventive measures indicated. We will follow along closely. Thank you very much, Dr. Bernal and Dr. Coronel. Please call for questions. MD CHAVA [place]/VIOLET /[id number]
[2019-05-12 11:46] LABS: EOSINOPHILS % (MANUAL) 2 % (0-7); LYMPHOCYTES % (MANUAL) 26 % (19-48); MONOCYTES % (MANUAL) 8 % (3.4-9.0); NEUTROPHILS % (MANUAL) 64 % (40-74); PLATELET ESTIMATE ADEQUATE; PLATELET MORPHOLOGY COMMENT NORMAL; RBC MORPHOLOGY COMMENT NORMAL
--- NOTE | 2019-05-12 12:05 | Diagnostic Imaging Report ---
Examination: Thoracic ultrasound. Clinical indication: Dyspnea, pleural effusion. Technique: Transverse and longitudinal sonographic images of the right and left thoracic cavities was performed. Comparison examination: CT chest 05/09/2019 Findings: See impression Impression: Trace right pleural effusion is present. No left pleural effusion is identified. Signed by: Dr. Logan Ha M.D. on 05/12/2019 12:02 PM
[2019-05-12] MEDS: CEFTRIAXONE SOD 1 GM/NS 50 ML 50 ML IV SCH (17:36)
[2019-05-12] MEDS: AZITHROMYCIN 250 MG TAB PO SCH (17:36)
--- NOTE | 2019-05-12 19:00 | NUR ---
Report received from morning nurse. Pt alert and oriented to name, lying in bed, HOB 45 degrees. c/o mild right leg pain. Bed low and locked. Call light within reach. Will continue to monitor.
[2019-05-13] VITALS (7 sets, daily range): BP systolic 129–150; BP diastolic 60–83
--- NOTE | 2019-05-13 00:47 | Progress Note ---
DATE: 05/12/2019 Cardiology Progress Note SUBJECTIVE: The patient denies chest pain or shortness of breath. OBJECTIVE: VITAL SIGNS: Temperature 97.2 degrees, pulse 94, respiratory rate 16, blood pressure 127/78, and oxygen saturation 98% on room air. GENERAL: Awake, alert, in no acute distress. LUNGS: Clear to auscultation bilaterally. No wheezes or crackles. CARDIOVASCULAR: Normal rate and regular rhythm. No murmur. Normal S1 and S2. ABDOMEN: Soft and nontender. EXTREMITIES: No edema. CARDIAC MEDICATIONS: Lasix 40 mg IV b.i.d. and aspirin 81 mg p.o. daily. LABORATORY DATA: WBC 10.46, hemoglobin 10.5, hematocrit 34.5, and platelets 340. Sodium 138, potassium 3.7, chloride 98, CO2 of 30, BUN 15, and creatinine 0.74. Ultrasound, chest, trace right pleural effusion. No left pleural effusion is identified. Telemetry, sinus tachycardia. IMPRESSION: 1. [id number] diastolic heart failure. 2. Elevated blood pressure, now controlled. 3. Pleural effusions, improved. RECOMMENDATIONS: Continue IV diuretics. The patient's respiratory status is improving and pleural effusions have decreased. Monitor the patient. Monitor creatinine. Replete electrolytes. Monitor the patient on telemetry. The patient was instructed to follow up in the office after she has recovered from her surgery for nuclear stress test given findings of diastolic dysfunction on echo. Thank you for this consult. We will continue to follow. Inge Goel MD ABS/MODL /[id number]
[2019-05-13] MEDS: HYDROMORPHONE 2MG/ML 2 MG/ML ML IV PRN ×5 (00:55→20:30)
[2019-05-13] MEDS: FAMOTIDINE 20 MG TAB PO SCH ×2 (00:59→13:03)
--- NOTE | 2019-05-13 03:22 | NUR ---
Pulmonary Medicine DATE 05/12/2019 SUBJECTIVE: remains on diuretics US chest with decreased fluid, small/minimal effusions appetite fair, mild nausea RA fio2 REVIEW OF SYSTEMS: No double vision. No constipation. PHYSICAL EXAMINATION: VITAL SIGNS: vital signs noted and reviewed per the chart record. GENERAL: no acute distress. Alert , calm. HEENT: Normocephalic and atraumatic. NECK: Supple. Throat midline. LUNGS: Bilateral air entry, decreased breath sounds at bases CARDIOVASCULAR: S1, S2. No murmurs, rubs, or gallops. ABDOMEN: Soft, nontender. EXTREMITIES: No clubbing. No cyanosis. no edema INTEGUMENT: No rash. No purpura. Vertical staple line at left anterior knee. LABORATORY DATA: k 3.7, cr 0.74 wbc 10.4, IMPRESSION AND PLAN: 1. Clinical pneumonitis. Etiology unclear. Cannot rule out aspiration, negative pressure pulmonary edema postextubation, community-acquired pneumonia, other. 2. Diastolic heart failure, acute. Possible. 3. Hypertension. 4. Gastroesophageal reflux disease, moderate hiatal hernia. 5. Multiple pulmonary nodules up to 6 mm in size. 6. Seasonal allergies. 7. Reported loud snoring without definite sleep apnea. 8. History of migraines. PLAN: Continue antibiotics. Continue diuretics Repeat radiography until resolution of infiltrates/effusions. US chest - improving/minimal effusions GERD preventive measures indicated. AM CXR Thank you very much, Dr. Bernal and Dr. Coronel. Please call for questions.
--- NOTE | 2019-05-13 06:42 | NUR ---
Pt lying in bed, HOB 45 degrees, resting with eyes closed, RR even and unlabored. No acute distress noted.
--- NOTE | 2019-05-13 07:00 | NUR ---
BEDSIDE SHIFT RECEIVED FROM THE WOOL WASHER RN.PT IS AAOX4. EDUCATED PT ABOUT FALL PRECAUTIONS. CALL LIGHT WITH IN EASY REACH. INSTRUCTED PT TO USE CALL LIGHT FOR ALL THE NEEDS. PT VERBALIZED UNDERSTANDING. BED IS LOW AND LOCKED. SIDE RAILS X2. PT DENIES NEEDS AT THIS TIME.
--- NOTE | 2019-05-13 08:17 | Diagnostic Imaging Report ---
Chest, portable AP view History: Dyspnea Comparison: 05/05/2019 IMPRESSION: The heart is within normal limits of size. Left basilar atelectasis is present. No focal consolidation, pleural effusion, or pneumothorax. Signed by: Michel Stafford MD on 05/13/2019 8:13 AM
[2019-05-13] MEDS: ASPIRIN 81 MG ENTERIC COATED PO SCH (09:19)
[2019-05-13] MEDS: FUROSEMIDE INJ 10 MG/ML 4 ML VIAL IV SCH (09:19)
--- NOTE | 2019-05-13 10:00 | NUR ---
PAGED DR. DRAKE AND LEFT MESSAGE REGARDING PT D/C. WAITING FOR THE CALL BACK.
--- NOTE | 2019-05-13 11:03 | NUR ---
CALL BACK FROM DR. DRAKE. NO D/C PLAN YET FOR THE PT PER DR. DRAKE. INFORMED THE SAME TO DR. MARTIN.
[2019-05-13 12:29] LABS: ANION GAP 16.1 mmol/L (8-16); BLOOD UREA NITROGEN 16 mg/dL (7-26); BUN/CREATININE RATIO 19 (6-25); CALCIUM 9.9 mg/dL (8.4-10.2); CARBON DIOXIDE 29 mmol/L (22-29); CHLORIDE 96 mmol/L (98-107); CREATININE, SERUM 0.83 mg/dL (0.57-1.11); EST GLOMERULAR FILTRATION RATE > 60 ML/MIN (60-); GLUCOSE 138 mg/dL (74-118); POTASSIUM 4.1 mmol/L (3.5-5.1); SODIUM 137 mmol/L (136-145)
--- NOTE | 2019-05-13 13:15 | NUR ---
DR. BALLARD AT BEDSIDE. NEW ORDER FOR HOME O2 EVAL AND THYROID.
--- NOTE | 2019-05-13 13:18 | NUR ---
PAGED RESPIRATORY AND INFORMED HOME O2 EVAL.
--- NOTE | 2019-05-13 15:00 | NUR ---
PT HR ELEVATED WHOLE DAY OVER 100-130. PAGED DR. DRAKE AND LEFT MESSAGE REGARDING THE SAME.
--- NOTE | 2019-05-13 15:30 | NUR ---
STOP LASIX, GIVE 250 ML NS @ 75 CC/HR ONCE AND CHECK D DIMER PER DR DRAKE.
[2019-05-13] MEDS ORDERED: SODIUM CHLORIDE 0.9% 250ML 250 ML IV ONE (15:45)
[2019-05-13] MEDS ORDERED: ONDANSETRON HCL 4 MG ORAL DISINTEGRATING TAB PO PRN (15:45)
[2019-05-13 15:53] LABS: FREE THYROXINE INDEX 2.4868 (1.4-3.8); THYROID STIMULATING HORMONE 1.386 uIU/mL (0.350-4.940)
--- NOTE | 2019-05-13 16:48 | NUR ---
Nutrition Screen Note RD Recommendation for Physician: -Continue cardiac diet Plan of Care: RD following, monitoring for tolerance and adequacy Nutrition reason for involvement: new onset of CHF Primary Diagnose(s): dyspnea, new onset of CHF, pleural effusion, and pneumonia PMH: migraines, GERD, partial colon resection Ht: 65 in Wt:210 lb BMI: 34.9 kg/m2 IBW: [address] Assessment: (05/13/19) Chart reviewed. Labs and meds reviewed. Pt is a 58 year old female admitted with dyspnea, new onset of CHF, pleural effusion, and pneumonia. Per documentation, pt has been consuming 50-100% of meals during admission. No wt loss reported and pt declared she usually weighs 191 lbs. However, pt currently has a wt of 210 lbs in chart. Pt reported having nausea yesterday. Will continue to monitor. Current Diet: Cardiac Malnutrition Evaluation (05/13/19) The patient does not meet criteria for a specified degree of malnutrition at this time. Will re-evaluate at follow-up as appropriate. Diet Education Needs Assessment: Pt was interested in diet education Learner(s): pt Barriers: no barriers identified Cultural/Language Modifications: No cultural/language modifications noted Readiness: willing Method: explanation/ discussion, handout Topics: low sodium diet Understanding/Compliance: Verbalized understanding and pt did not have any questions Nutrition Care Level: low Signed: Lexie Valera, RD, LD
[2019-05-13] MEDS: AZITHROMYCIN 250 MG TAB PO SCH (17:18)
--- NOTE | 2019-05-13 19:00 | NUR ---
BEDSIDE SHIFT REPORT GIVEN TO THE WET PROCESS MILLER RN. PT DENIED FURTHER NEEDS.
[2019-05-13] MEDS ORDERED: CEFTRIAXONE SOD 1 GM/NS 50 ML 50 ML IV SCH (20:00)
--- NOTE | 2019-05-13 21:48 | NUR ---
Pulmonary Medicine DATE 05/13/2019 SUBJECTIVE: RA fio2 93% saturation tachycardia 130-140s reported on ambulation eating REVIEW OF SYSTEMS: No double vision. No constipation. PHYSICAL EXAMINATION: VITAL SIGNS: vital signs noted and reviewed per the chart record. GENERAL: no acute distress. Alert , calm. HEENT: Normocephalic and atraumatic. NECK: Supple. Throat midline. LUNGS: Bilateral air entry, decreased breath sounds at bases CARDIOVASCULAR: S1, S2. No murmurs, rubs, or gallops. ABDOMEN: Soft, nontender. EXTREMITIES: No clubbing. No cyanosis. no edema INTEGUMENT: No rash. No purpura. Vertical staple line at left anterior knee. LABORATORY DATA: no new updates IMPRESSION AND PLAN: 1. Clinical pneumonitis. Etiology unclear. Cannot rule out aspiration, negative pressure pulmonary edema postextubation, community-acquired pneumonia, other. 2. Diastolic heart failure, acute. Possible. 3. Hypertension. 4. Gastroesophageal reflux disease, moderate hiatal hernia. 5. Multiple pulmonary nodules up to 6 mm in size. 6. Seasonal allergies. 7. Reported loud snoring without definite sleep apnea. 8. History of migraines. PLAN: Continue antibiotics. Fluid vs diuretics, follow HR Repeat radiography until resolution of infiltrates/effusions. US chest - improving/minimal effusions. No thoracentesis recommended GERD preventive measures indicated. intermittent CXR until cleared check thyroid testing Thank you very much, Dr. Bernal and Dr. Coronel. Please call for questions.
[2019-05-14 00:20] VITALS: BP 130/77
[2019-05-14] MEDS: HYDROMORPHONE 2MG/ML 2 MG/ML ML IV PRN ×3 (00:30→09:35)
[2019-05-14] MEDS: FAMOTIDINE 20 MG TAB PO SCH ×2 (00:30→12:32)
--- NOTE | 2019-05-14 01:20 | Progress Note ---
DATE: 05/13/2019 Cardiology Progress Note SUBJECTIVE: The patient denies chest pain, but notes she had dyspnea on exertion with walking to the shower today. OBJECTIVE: VITAL SIGNS: Temperature 97.3 degrees, pulse 104, respiratory rate 17, blood pressure 145/81, oxygen saturation 92% on 2 L nasal cannula. GENERAL: Well-developed and well-nourished woman, in no acute distress. LUNGS: Clear to auscultation bilaterally. No wheezes or crackles. CARDIOVASCULAR: Normal rate and regular rhythm. No murmur. Normal S1 and S2. ABDOMEN: Soft and nontender. EXTREMITIES: No edema. CARDIAC MEDICATIONS: Aspirin 81 mg p.o. daily, furosemide 40 mg IV t.i.d. TELEMETRY: Sinus tachycardia. IMPRESSION: 1. Jivjv-wf-hilanca diastolic heart failure. 2. Hypoxia. 3. Sinus tachycardia. 4. Pleural effusions, improved. RECOMMENDATIONS: The patient is now tachycardic. BNP is significantly reduced. Stop IV diuretics at this time. Given her tachycardia, we will attempt gentle IV fluid hydration. Given worsening hypoxia, repeat D-dimer. Continue current cardiac medications otherwise. Monitor response to above changes. Thank you for this consult. We will continue to follow. Inge Goel MD ABS/MODL /[id number]
[2019-05-14 05:58] VITALS: BP 140/77
--- NOTE | 2019-05-14 07:00 | NUR ---
RECEIVED PATIENT AWAKE RESTING IN BED NO S/S OF DISTRESS. BED LOW, WHEELS LOCKED, SIDE RAILS X2. CALL LIGHT IN REACH WILL CONTINUE TO MONITOR PATIENT.
[2019-05-14 07:42] VITALS: BP 126/69
[2019-05-14] MEDS: ASPIRIN 81 MG ENTERIC COATED PO SCH (08:48)
[2019-05-14 09:42] VITALS: BP 126/69
[2019-05-14 11:29] VITALS: BP 140/90
--- NOTE | 2019-05-14 11:29 | NUR ---
SPOKE WITH DR. COLETTE RIVERA TO DISCHARGE PATIENT.
[2019-05-14] MEDS ORDERED: AUGMENTIN 875-1 EACH PO (11:39)
--- NOTE | 2019-05-14 11:55 | NUR ---
REMOVED PATIENTS IV. CATHETER TIP INTACT AND PRESSURE DRESSING APPLIED.
--- NOTE | 2019-05-14 12:37 | NUR ---
PATIENT DISCHARGED FROM FACILITY. PATIENT GATHERED ALL PERSONAL BELONGINGS, DISCHARGE INSTRUCTIONS, AND FOLLOW UP INFORMATION. PATIENT LEFT UNIT IN STABLE CONDITION VIA WHEELCHAIR. WENT HOME VIA PRIVATE AUTO. NO SIGNS OF DISTRESS WHEN LEAVING FACILITY.
--- NOTE | 2019-05-14 12:39 | NUR ---
Pulmonary Medicine DATE 05/14/2019 SUBJECTIVE: walked less sob compared to yesterday no dizziness 94% saturation on RA ffio2 REVIEW OF SYSTEMS: No double vision. No constipation. PHYSICAL EXAMINATION: VITAL SIGNS: vital signs noted and reviewed per the chart record. GENERAL: no acute distress. Alert , calm. HEENT: Normocephalic and atraumatic. NECK: Supple. Throat midline. LUNGS: Bilateral air entry, decreased breath sounds at bases CARDIOVASCULAR: S1, S2. No murmurs, rubs, or gallops. ABDOMEN: Soft, nontender. EXTREMITIES: No clubbing. No cyanosis. no edema INTEGUMENT: No rash. No purpura. Vertical staple line at left anterior knee. LABORATORY DATA: no new updates IMPRESSION AND PLAN: 1. Clinical pneumonitis. Etiology unclear. Cannot rule out aspiration, negative pressure pulmonary edema postextubation, community-acquired pneumonia, other. 2. Diastolic heart failure, acute. Possible. 3. Hypertension. 4. Gastroesophageal reflux disease, moderate hiatal hernia. 5. Multiple pulmonary nodules up to 6 mm in size. 6. Seasonal allergies. 7. Reported loud snoring without definite sleep apnea. 8. History of migraines. PLAN: Continue antibiotics. Fluid vs diuretics, follow HR. Better today? Repeat radiography until resolution of infiltrates/effusions. May require outpatient CT chest as best imaging modality Outpatient PFTs, r/o underlying chronic lung disease US chest - improving/minimal effusions. No thoracentesis recommended GERD preventive measures indicated. Outpatient follow up Thank you very much, Dr. Bernal and Dr. Coronel. Please call for questions.
[2019-05-14] MEDS ORDERED: ENOXAPARIN SOD INJ 40 MG/0.4 ML SYR SC SCH (17:00)
== END 2019-05-14 12:38 | disposition home or self-care (01) | DRG 291 ==
LOC: ER 13:52 → ERHOLD 18:30 → MED/SURG2 05-10 14:24
DX: I11.0 Hypertensive heart disease with heart failure (principal); J18.9 Pneumonia, unspecified organism; I50.33 Acute on chronic diastolic (congestive) heart failure; K21.9 Gastro-esophageal reflux disease without esophagitis; R91.8 Other nonspecific abnormal finding of lung field; G43.909 Migraine, unspecified, not intractable, without status migrainosus; J20.9 Acute bronchitis, unspecified; K44.9 Diaphragmatic hernia without obstruction or gangrene; R09.02 Hypoxemia
CPT/HCPCS: 36415; 71045; 71260; 76604; 80048; 80053; 80061; 82550; 82553; 83615; 83735; 83880; 84100; 84132; 84436; 84443; 84479; 84484; 85025; 85379; 85610; 85730; 87040; 87400; 93005; 93306; 93970; 96374; 96376; 99284; J0456; J0696; J1200; J1940; J2270; J2405; J2930; J7040; J7050; Q9967